=== PATIENT | male | born 2000 ===

== ENCOUNTER 2023-10-22 16:00 | Outpatient (CLI) | payer BC | END 2023-10-22 16:01 | disposition home or self-care (01) | LOC: SLEEPLAB 16:00 | PROVIDERS: ATTEND Emergency Medicine | DX: G47.33 Obstructive sleep apnea (adult) (pediatric) (principal); R53.83 Other fatigue; R51.9 Headache, unspecified; E66.9 Obesity, unspecified; R06.83 Snoring; Z68.30 Body mass index [BMI] 30.0-30.9, adult | CPT/HCPCS: 95811 ==